=== PATIENT | male | born 1970 | race Caucasian/White ===

== ENCOUNTER 2017-12-10 13:09 | Inpatient (IN) | payer OTHER ==
[~2017-12-10] VITALS: Ht 188 cm; Wt 122.5 kg
[2017-12-10] MEDS ORDERED: LIPITOR20 MG (13:27)
[2017-12-10] MEDS ORDERED: LOSARTAN-HCTZ1 EAC1 (13:27)
[2017-12-10] MEDS ORDERED: TRICON CAPSULE1 EACH (13:28)
[2017-12-10] MEDS ORDERED: NEURONTIN600 MG (13:28)
[2017-12-10] MEDS ORDERED: ZANTAC300 MG (13:28)
== END 2017-12-12 14:49 | disposition designated cancer center or children's hospital (05) | DRG 282 ==
LOC: ER 13:09 → SEC-K 18:34 → MEDI 18:34
PROC: B246ZZZ Ultrasonography of Right and Left Heart (ICD-10-PCS; principal; 2017-12-10)
PROC: 4A12X4Z Monitoring of Cardiac Electrical Activity, External Approach (ICD-10-PCS; 2017-12-11)
DX: I21.4 Non-ST elevation (NSTEMI) myocardial infarction (principal); I24.9 Acute ischemic heart disease, unspecified; I10 Essential (primary) hypertension; E78.4 Other hyperlipidemia; F17.210 Nicotine dependence, cigarettes, uncomplicated